=== PATIENT | female | born 1935 | race Caucasian/White ===

== ENCOUNTER 2023-03-27 17:23 | Emergency (ER) | payer BC ==
[~2023-03-27] VITALS: Ht 154.9 cm; Wt 49.9 kg
[2023-03-27 17:27] VITALS: BP 102/53; PULSE 67; RESP 16; TEMP 98; O2SAT 98
--- NOTE | 2023-03-27 18:20 | NUR ---
RIGHT SHOULDER PAIN, SP FALL.
[2023-03-27 19:55] VITALS: BP 102/53; PULSE 67; RESP 16; TEMP 98; O2SAT 98
--- NOTE | 2023-03-27 19:55 | NUR ---
Patient discharged with v/s stable. Written and verbal after care instructions given and explained. Patient verbalized understanding. Ambulatory with steady gait. All questions addressed prior to discharge. Advised to follow up with PMD.
== END 2023-03-27 19:55 | disposition home or self-care (01) ==
LOC: MED 17:23
DX: S43.491A Other sprain of right shoulder joint, initial encounter (principal); S40.021A Contusion of right upper arm, initial encounter; I25.10 Atherosclerotic heart disease of native coronary artery without angina pectoris; Z79.899 Other long term (current) drug therapy; W01.0XXA Fall on same level from slipping, tripping and stumbling without subsequent striking against object, initial encounter; Y93.89 Activity, other specified; Y92.89 Other specified places as the place of occurrence of the external cause; Y99.8 Other external cause status
CPT/HCPCS: 73030; 73060; 99284